=== PATIENT | male | born 1975 | race Two or more races ===

== ENCOUNTER → 2016-09-06 | Outpatient (CLI) | payer MEDICARE, OTHER ==
[~2016-09-06] MED LIST: AMLODIPINE BESY10 MG PO; CALCIUM ACETAT667 M1 PO; COZAAR100 MG PO; LEVOTHYROXINE75 MCG PO; LONITEN10 M1 PO; METOPROLOL TAR100 MG PO; RENAL SOFTGEL1 MG PO; RENVELA800 MG PO; SENSIPAR60 MG PO
--- NOTE | ~2016-09-06 | XA51 ---
[facility] A Service of [facility] & [facility] RADIOLOGY TEXT RESULTS PATIENT: OLIVA SUTHERLAND [facility] 75 UNIT #: [id number] AGE: [address]: Karon Joyce MD SEX: M ORDER DR: [id number] [facility] [address] [place], [place] [address] [id number] O MR#: [id number] Acc #: [id number] NAME: OLIVA SUTHERLAND : 1975 SEX: M STUDY DATE/TIME: 09/06/2016 10:40 UNIT: [facility] ROOM: STUDY DESCRIPTION: MARIA EUGENIA ROMAN Bone Marrow Attending Physician: Karon Joyce M.D. Referring Physician: Karon Joyce M.D. Ordering Physician: Karon Joyce M.D. Primary Care Physician: Generic Doctor Not In System MEDICAL IMAGING REPORT This report is preliminary unless electronic signature is present EXAM Study is a bone marrow aspiration and biopsy under fluoroscopy. HISTORY Thrombocytopenia. FINDINGS The procedure, attendant, risks and options were discussed with Mr. Sutherland. He understands and wishes to proceed. Informed consent was obtained. Patient was placed in the prone position in the angio suite. The right iliac bone was localized fluoroscopically and marked. Skin was prepped with chlorhexidine and sterilely draped. There was a maximal sterile barrier technique including mask and gloves was utilized. Under local anesthesia a 11-gauge trocar was advanced to the right iliac crest and aspiration and biopsy were performed utilizing the [employer] system. The needle was removed, hemostasis achieved. Conscious sedation was provided with IV Versed and fentanyl. The patient was monitored by the IR nurse through the entire procedure. The patient was transferred to short-stay unit post procedure, where he will be monitored until fully awake and discharged. A single spot radiograph was obtained. Total fluoroscopy 0.7 minutes. Total exposure 42 mGy. Air-kerma standard single spot radiograph was obtained. CONCLUSION Technically successful bone marrow aspiration and biopsy under fluoroscopy. Dictated by... Kt Low M.D. THIS IS AN ELECTRONICALLY VERIFIED REPORT Kt Low M.D. at 09/08/2016 7:14 AM [facility] A Service of [facility] RADIOLOGY TEXT RESULTS PATIENT: OLIVA SUTHERLAND LOCATION: [facility] ACC #: [id number] : 75 UNIT #: [id number] AGE: [address]: Karon Joyce MD SEX: M ORDER DR: EDGAR/priyanka TD: 09/06/2016 14:17 JOB #: [id number] MEDICAL IMAGING REPORT Page 1 of 1 COPY
[2016-09-06 09:58] LABS: HEMATOCRIT 34.3 % (38.0-50.0); HEMOGLOBIN 11.2 gm/dL (13.0-16.0); MEAN CELL VOLUME 95.7 FL (83-96); MEAN CORPUSCULAR HEMOGLOBIN 31.1 PG (28-34); MEAN CORPUSCULAR HGB CONC 32.5 g/dL (30-36); MEAN PLATELET VOLUME 9.5 FL (6.5-11.5); RED BLOOD COUNT 3.59 X10e (3.90-5.60); RED CELL DISTRIBUTION WIDTH 18.6 % (11.0-15.5); WHITE BLOOD COUNT 6.7 X10e3 (4.0-10.5)
[2016-09-06 10:11] LABS: INR 1.1; PARTIAL THROMBOPLASTIN TIME 26.9 SECONDS (23.5-31.3); PROTHROMBIN TIME (PATIENT) 11.5 SECONDS (9.6-11.5)
== END | disposition home or self-care (01) ==
LOC: CIVR 09:03
PROVIDERS: Internal Medicine Hematology
DX: D69.49 Other primary thrombocytopenia (principal); I12.0 Hypertensive chronic kidney disease with stage 5 chronic kidney disease or end stage renal disease; N18.6 End stage renal disease; Z99.2 Dependence on renal dialysis; D63.1 Anemia in chronic kidney disease
CPT/HCPCS: 38221; G0364; 36415; 77002; 85027; 85610; 85730; 86900; 86901; 88184; 88185; 88237; 88264; 88305; 88311; 88313; 88323; 88341; 88342; 99144; 99152; 99153; J2250; J3010